=== PATIENT | female | born 1960 | race Two or more races ===

== ENCOUNTER → 2021-04-08 17:17 | Outpatient (CLI) | payer MEDICARE, MEDICAID, SELFPAY ==
[2021-04-08 17:57] LABS: Basophils # 0.1 K/mm3 (0-0.2); Basophils % 0.5 % (0.1-2.0); Eosinophils # 0.4 K/mm3 (0.0-0.4); Eosinophils % 4.6 % (0.1-12.0); Hematocrit 41.2 % (37.0-47.0); Hemoglobin 13.2 g/dL (12.2-16.2); Lymphocytes # 1.8 K/mm3 (0.7-4.5); Lymphocytes % 21.5 % (10-50); Mean Corpuscular HGB Conc 32.1 g/dL (31.8-35.4); Mean Corpuscular Hemoglobin 30.4 pg (27.0-31.2); Mean Corpuscular Volume 94.6 fl (81-99); Mean Platelet Volume 8.7 fl (7.4-10.4); Monocytes # 0.4 K/mm3 (0.1-1.0); Monocytes % 4.8 % (1.7-9.3); Neutrophils # 5.8 K/mm3 (1.8-7.8); Neutrophils % 68.5 % (37.0-80.0); Platelet Count 336 K/mm3 (142-424); Red Blood Count 4.35 M/mm3 (4.20-5.40); Red Cell Distribution Width 12.5 % (11.5-17.5); White Blood Count 8.5 K/mm3 (4.8-10.8)
[2021-04-08 18:42] LABS: Hemoglobin A1C 11.8 % (4.0-6.0)
[2021-04-08 19:01] LABS: Chloride 96 mmol/L (98-107); Potassium 4.6 mmoL/L (3.5-5.1); Sodium 138 mmol/L (136-145)
[2021-04-08 19:04] LABS: Alanine Aminotransferase 20 U/L (12-78); Albumin Level 4.3 g/dl (3.5-5.0); Albumin/Globulin Ratio 1.3 (1.1-1.8); Alkaline Phosphatase 199 U/L (38-126); Anion Gap 17.6 mEq/L (5-15); Aspartate Amino Transferase 28 U/L (14-36); Bilirubin,Total 0.3 mg/dl (0.2-1.3); Blood Urea Nitrogen 20 mg/dl (7-17); Carbon Dioxide 29 mmol/L (22.0-30.0); Cholesterol 184 mg/dl (140-200); Estimated Glomerular Filt Rate 73 ml/min (>60); GFR (African American) 88 ML/MIN (>60); Globulin 3.4 g/dL (1.3-3.2); Total Protein,Serum 7.7 g/dl (6.3-8.2); Triglycerides 123 mg/dl (30-150); VLDL Cholesterol 25 mg/dL (0-40)
[2021-04-08 19:05] LABS: Calcium 9.2 mg/dl (8.4-10.2); Chol/HDL Ratio 2.3 (1-3.5); Glucose 325 mg/dl (74-100); HDL Cholesterol 80 mg/dl (40-60)
[2021-04-08 19:16] LABS: Direct LDL Cholesterol 79.26 mg/dL (100-129)
== END ==
PROVIDERS: Visit Provider Family Medicine
DX: G47.33 Obstructive sleep apnea (adult) (pediatric) (principal); Z99.89 Dependence on other enabling machines and devices; Z76.89 Persons encountering health services in other specified circumstances; E11.9 Type 2 diabetes mellitus without complications; Z79.4 Long term (current) use of insulin
CPT/HCPCS: 80053; 80061; 83036; 85025

== ENCOUNTER → 2021-11-04 16:00 | Outpatient (CLI) | payer MEDICARE, MEDICAID, SELFPAY ==
[2021-11-04 18:24] LABS: Alanine Aminotransferase 24 U/L (12-78); Albumin Level 4.1 g/dl (3.5-5.0); Albumin/Globulin Ratio 1.5 (1.1-1.8); Alkaline Phosphatase 268 U/L (38-126); Anion Gap 13.5 mEq/L (5-15); Aspartate Amino Transferase 44 U/L (14-36); Bilirubin,Total 0.6 mg/dl (0.2-1.3); Blood Urea Nitrogen 20 mg/dl (7-17); Calcium 8.9 mg/dl (8.4-10.2); Carbon Dioxide 30 mmol/L (22.0-30.0); Chloride 96 mmol/L (98-107); Estimated Glomerular Filt Rate 85 ml/min (>60); GFR (African American) 102 ML/MIN (>60); Globulin 2.7 g/dL (1.3-3.2); Glucose 379 mg/dl (74-100); HDL Cholesterol 61 mg/dl (40-60); Potassium 5.5 mmoL/L (3.5-5.1); Sodium 134 mmol/L (136-145); Total Protein,Serum 6.8 g/dl (6.3-8.2)
[2021-11-04 18:36] LABS: Direct LDL Cholesterol 43.66 mg/dL (100-129)
[2021-11-04 18:38] LABS: Hemoglobin A1C 12.4 % (4.0-6.0)
[2021-11-04 18:55] LABS: Thyroid Stimulating Hormone 4.57 uIU/mL (0.465-4.68)
[2021-11-04 19:25] LABS: Chol/HDL Ratio 2.3 (1-3.5); Cholesterol 143 mg/dl (140-200); Triglycerides 221 mg/dl (30-150); VLDL Cholesterol 44 mg/dL (0-40)
== END ==
PROVIDERS: Visit Provider Family Medicine
DX: E11.9 Type 2 diabetes mellitus without complications (principal); E78.2 Mixed hyperlipidemia; Z79.4 Long term (current) use of insulin; Z79.899 Other long term (current) drug therapy
CPT/HCPCS: 80053; 80061; 83036; 84443

== ENCOUNTER → 2023-03-19 15:06 | Outpatient (CLI) | payer MEDICARE, MEDICAID, SELFPAY | PROVIDERS: PCP Family Medicine; Visit Provider Family Medicine | DX: N28.9 Disorder of kidney and ureter, unspecified (principal); B96.29 Other Escherichia coli [E. coli] as the cause of diseases classified elsewhere | CPT/HCPCS: 87086; 87088; 87186 ==

== ENCOUNTER → 2023-07-26 07:01 | Outpatient (CLI) | payer MEDICARE, MEDICAID, SELFPAY | PROVIDERS: PCP Nurse Practitioner; Visit Provider Nurse Practitioner | DX: R30.0 Dysuria (principal); B95.2 Enterococcus as the cause of diseases classified elsewhere | CPT/HCPCS: 87086 ==

== ENCOUNTER 2023-08-18 18:21 | Outpatient (CLI) | payer MEDICARE, MEDICAID, SELFPAY | END 2023-08-18 23:59 | LOC: LAB.DROPOF 18:22 | PROVIDERS: PCP Family Medicine; Visit Provider Family Medicine | DX: N39.0 Urinary tract infection, site not specified (principal) | CPT/HCPCS: 87086 ==

== ENCOUNTER 2023-11-18 18:00 | Outpatient (CLI) | payer MEDICARE, MEDICAID, SELFPAY ==
[2023-11-18 18:51] LABS: Basophils % 0.5 % (0.1-2.0); Eosinophils # 0.3 K/mm3 (0.0-0.4); Eosinophils % 5.3 % (0.1-12.0); Hematocrit 36.6 % (37.0-47.0); Hemoglobin 11.5 g/dL (12.2-16.2); Lymphocytes # 1.8 K/mm3 (0.7-4.5); Lymphocytes % 30.6 % (10-50); Mean Corpuscular HGB Conc 31.4 g/dL (31.8-35.4); Mean Corpuscular Hemoglobin 30.6 pg (27.0-31.2); Mean Corpuscular Volume 97.4 fl (81-99); Mean Platelet Volume 9.2 fl (7.4-10.4); Monocytes # 0.4 K/mm3 (0.1-1.0); Monocytes % 6.4 % (1.7-9.3); Neutrophils # 3.3 K/mm3 (1.8-7.8); Neutrophils % 57.2 % (37.0-80.0); Platelet Count 313 K/mm3 (142-424); Red Blood Count 3.76 M/mm3 (4.20-5.40); Red Cell Distribution Width 13.1 % (11.5-17.5); White Blood Count 5.8 K/mm3 (4.8-10.8)
[2023-11-18 20:02] LABS: Alanine Aminotransferase 28 U/L (12-78); Albumin Level 3.9 g/dl (3.5-5.0); Albumin/Globulin Ratio 1.6 (1.1-1.8); Alkaline Phosphatase 163 U/L (38-126); Anion Gap 8.1 mEq/L (5-15); Aspartate Amino Transferase 28 U/L (14-36); Bilirubin,Total 0.3 mg/dl (0.2-1.3); Blood Urea Nitrogen 21 mg/dl (7-17); Calcium 9.1 mg/dl (8.4-10.2); Carbon Dioxide 32 mmol/L (22.0-30.0); Chloride 101 mmol/L (98-107); Chol/HDL Ratio 2.8 (1-3.5); Cholesterol 192 mg/dl (140-200); Estimated Glomerular Filt Rate 72 ml/min (>60); GFR (African American) 87 ML/MIN (>60); Globulin 2.4 g/dL (1.3-3.2); Glucose 305 mg/dl (74-100); HDL Cholesterol 68 mg/dl (40-60); Potassium 5.1 mmoL/L (3.5-5.1); Sodium 136 mmol/L (136-145); Total Protein,Serum 6.3 g/dl (6.3-8.2); Triglycerides 188 mg/dl (30-150); VLDL Cholesterol 38 mg/dL (0-40)
[2023-11-18 20:09] LABS: Hemoglobin A1C 12.1 % (4.0-6.0)
[2023-11-18 20:12] LABS: Direct LDL Cholesterol 74.42 mg/dL (100-129)
[2023-11-18 20:32] LABS: Thyroid Stimulating Hormone 4.68 uIU/mL (0.465-4.68)
== END 2023-11-18 23:59 | disposition home or self-care (01) ==
LOC: LAB.DROPOF 11-19 10:27
PROVIDERS: PCP Family Medicine; Visit Provider Family Medicine
DX: I11.9 Hypertensive heart disease without heart failure (principal); E78.2 Mixed hyperlipidemia; E11.9 Type 2 diabetes mellitus without complications; Z79.899 Other long term (current) drug therapy
CPT/HCPCS: 80053; 80061; 83036; 84443; 85025

== ENCOUNTER 2024-06-21 14:50 | Outpatient (CLI) | payer MEDICARE, MEDICAID, SELFPAY ==
[2024-06-21 18:52] LABS: Basophils % 0.2 % (0.1-2.0); Eosinophils % 0.4 % (0.1-12.0); Hematocrit 36.6 % (37.0-47.0); Hemoglobin 11.8 g/dL (12.2-16.2); Lymphocytes # 1.9 K/mm3 (0.7-4.5); Mean Corpuscular HGB Conc 32.3 g/dL (31.8-35.4); Mean Corpuscular Hemoglobin 29.3 pg (27.0-31.2); Mean Corpuscular Volume 90.8 fl (81-99); Mean Platelet Volume 8.5 fl (7.4-10.4); Monocytes # 0.6 K/mm3 (0.1-1.0); Monocytes % 5.4 % (1.7-9.3); Neutrophils # 8.6 K/mm3 (1.8-7.8); Platelet Count 340 K/mm3 (142-424); Red Blood Count 4.03 M/mm3 (4.20-5.40); Red Cell Distribution Width 13.8 % (11.5-17.5); White Blood Count 11.1 K/mm3 (4.8-10.8)
[2024-06-21 19:30] LABS: Alanine Aminotransferase 25 U/L (12-78); Albumin/Globulin Ratio 1.7 (1.1-1.8); Alkaline Phosphatase 113 U/L (38-126); Anion Gap 11.8 mEq/L (5-15); Aspartate Amino Transferase 32 U/L (14-36); Bilirubin,Total 0.4 mg/dl (0.2-1.3); Blood Urea Nitrogen 18 mg/dl (7-17); Calcium 8.8 mg/dl (8.4-10.2); Carbon Dioxide 32 mmol/L (22.0-30.0); Chloride 99 mmol/L (98-107); Chol/HDL Ratio 1.7 (1-3.5); Cholesterol 131 mg/dl (140-200); Estimated Glomerular Filt Rate 84 ml/min (>60); GFR (African American) 102 ML/MIN (>60); Globulin 2.4 g/dL (1.3-3.2); Glucose 168 mg/dl (74-100); HDL Cholesterol 75 mg/dl (40-60); Potassium 4.8 mmoL/L (3.5-5.1); Sodium 138 mmol/L (136-145); Total Protein,Serum 6.4 g/dl (6.3-8.2); Triglycerides 95 mg/dl (30-150); VLDL Cholesterol 19 mg/dL (0-40)
[2024-06-21 19:56] LABS: Hemoglobin A1C 10.8 % (4.0-6.0)
== END 2024-06-21 23:59 | disposition home or self-care (01) ==
LOC: LAB.DROPOF 06-22 15:41
PROVIDERS: PCP Family Medicine; Visit Provider Family Medicine
DX: E11.9 Type 2 diabetes mellitus without complications (principal); E78.2 Mixed hyperlipidemia; I11.9 Hypertensive heart disease without heart failure; Z86.73 Personal history of transient ischemic attack (TIA), and cerebral infarction without residual deficits
CPT/HCPCS: 80053; 80061; 83036; 85025

== ENCOUNTER 2024-12-06 08:54 | Outpatient (CLI) | payer MEDICARE, MEDICAID, SELFPAY ==
[2024-12-06 19:02] LABS: Microalbumin/Creatinine Ratio 122.4
[2024-12-06 19:10] LABS: Creatinine,Urine Random 50 mg/dL (Not Estab.)
== END 2024-12-06 23:59 | disposition home or self-care (01) ==
LOC: LAB.DROPOF 12-08 08:55
PROVIDERS: PCP Family Medicine; Visit Provider Family Medicine
DX: E11.9 Type 2 diabetes mellitus without complications (principal); Z79.85 Long-term (current) use of injectable non-insulin antidiabetic drugs; Z79.4 Long term (current) use of insulin
CPT/HCPCS: 82043; 82570

== ENCOUNTER 2025-03-07 12:15 | Outpatient (CLI) | payer MEDICARE, MEDICAID, SELFPAY ==
[2025-03-07 15:11] LABS: Hematocrit 31.7 % (37.0-47.0); Hemoglobin 9.7 g/dL (12.2-16.2); Immature Granulocytes % 0.4 %; Mean Corpuscular HGB Conc 30.6 g/dL (31.8-35.4); Mean Corpuscular Hemoglobin 24.9 pg (27.0-31.2); Mean Corpuscular Volume 81.5 fl (81-99); Nucleated Red Blood Cells % 0 %; Platelet Count 368 K/mm3 (142-424); Red Blood Count 3.89 M/mm3 (4.20-5.40); Red Cell Distribution Width-SD 49.1 fL; White Blood Count 7.7 K/mm3 (4.8-10.8)
[2025-03-07 15:59] LABS: Alanine Aminotransferase 17 U/L (12-78); Albumin Level 4.1 g/dl (3.5-5.0); Albumin/Globulin Ratio 1.5 (1.1-1.8); Alkaline Phosphatase 143 U/L (38-126); Anion Gap 9.9 mEq/L (5-15); Aspartate Amino Transferase 25 U/L (14-36); Blood Urea Nitrogen 18 mg/dl (7-17); Calcium 9.2 mg/dl (8.4-10.2); Carbon Dioxide 31 mmol/L (22.0-30.0); Chloride 100 mmol/L (98-107); Cholesterol 139 mg/dl (140-200); Creatinine,Serum 0.70 mg/dl (0.52-1.04); Estimated Glomerular Filt Rate 84 ml/min (>60); GFR (African American) 101 ML/MIN (>60); Globulin 2.7 g/dL (1.3-3.2); Glucose 125 mg/dl (74-100); HDL Cholesterol 77 mg/dl (40-60); Potassium 4.9 mmoL/L (3.5-5.1); Sodium 136 mmol/L (136-145); Total Protein,Serum 6.8 g/dl (6.3-8.2); Triglycerides 60 mg/dl (30-150)
[2025-03-07 16:04] LABS: Bilirubin,Total < 0.1 mg/dl (0.2-1.3)
[2025-03-07 16:51] LABS: Hepatitis C Ab Qual. W/ RFX NEGATIVE (Negative)
[2025-03-08 05:15] LABS: Hepatitis B Surface Antigen Negative (Negative)
--- OUTSIDE RECORDS SUMMARY | 2025-03-08 11:49 | XMS_ITS | Clinical Summary ---
Author Organization [facility] Address [address] [place] [address] Care Team Providers Care Delivery Rep Name Role Phone Chau Davison MD Primary Care Provider Social History Tobacco Use Types Packs/Day Years Used Date Smoking Tobacco: Never Assessed Comments Unknown Sex and Gender Information Value Date Recorded Sex Assigned at Not on file Legal Sex Female 7:44 PM EDT Gender Identity Not on file Sexual Orientation Not on file Plan of Treatment Not on file Insurance [employer] MEDICARE [place] Care Teams Delivery Rep Relationship Specialty Start Date End Date Chau Davison MD [facility] [place] [address] PCP - General 08/09/23
--- OUTSIDE RECORDS SUMMARY | 2025-03-08 11:49 | XMS_ITS | Encounter Summary ---
Author Organization [facility] Address [address] [place] [address] Care Team Providers Care Chief Sales Officer Name Role Phone Chau Davison MD Primary Care Provider [phone] Encounter Details Date Type Department Care Team (Late st Contact Info) Description 08/31/2024 Lab Requisition [facility] [address] [place] [address] Jeremy Bergman MD [address] [place] [address] Other specified disorders of bladder Social History Tobacco Use Types Packs/Day Years Used Date Smoking Tobacco: Never Assessed Comments Unknown Sex and Gender Information Value Date Recorded Sex Assigned at Not on file Legal Sex Female 7:44 PM EDT Gender Identity Not on file Sexual Orientation Not on file documented as of this encounter Plan of Treatment Not on file documented as of this encounter Procedures Procedure Name Priority Date/Time Associated Diagnosis Comments SURGICAL PATHOLOGY CONSULT Routine 08/31/2024 10:39 AM EST Other specified disorders of bladder documented in this encounter Results * Surgical Pathology Consult (08/31/2024 10:39 AM EST) Case Report Sugical Pathology Consult Case: [id number] Authorizing Provider: Jeremy Bergman MD Collected: 08/31/2024 1039 Ordering Location: [facility] Received: 08/31/2024 1039 Pathologist: Ann-Marie Abdullahi MD Specimen: Bladder, [id number] 08/31/2024 2:[address] [facility] Final Diagnosis A. BLADDER, RIGHT LATERAL WALL, BIOPSY ([id number]; 08/29/24): - ULCERATED MUCOSA WITH GRANULATION TISSUE AND ACUTE INFLAMMATION SEE NOTE 08/31/2024 2:[address] [facility] at 1403 EST Comment Biopsy shows ulcerated mucosa with acute inflammation and granulation tissue. Submucosally prominent vessels are noted. Correlation with clinical and imaging findings is recommended. 08/31/2024 2:[address] [facility] Clinical Information N32.89 - Other specified disorders of bladder [ICD-10-CM] 08/31/2024 2:[address] [facility] Gross Description A. [id number] Received along with a corresponding pathology report from [facility] are 2 slide(s) and 1 Block labeled outside case: [id number] collected on 08/29/24. 08/31/2024 2:[address] [facility] Intradepartmental Consultation with Agreement Dr Tammie Gomez MD 08/31/2024 2:[address] [facility] Note: A resident was involved in the service. I attest I examined the relevant preparations for the specimens and confirmed the diagnosis or interpretation. 08/31/2024 2:[address] [facility] Tissue Urinary bladder structure / Unknown 08/31/2024 10:39 AM EST 08/31/2024 10:39 AM EST Jeremy Bergman MD LAB PATHOLOGY ORDERABLES Nina bojorquez Result Performing Organization Address City/State/[facility] Co de Phone Number [facility] [address] [place] [address] documented in this encounter Visit Diagnoses Diagnosis Other specified disorders of bladder documented in this encounter Care Teams Chief Sales Officer Relationship Specialty Start Date End Date Chau Davison MD [address] [place] [id number] PCP - General 08/09/23 documented as of this encounter
--- OUTSIDE RECORDS SUMMARY | 2025-03-08 11:49 | XMS_ITS | Clinical Summary ---
Author Organization [facility] Address [address] [place], [place] [address] Phone Care Team Providers Care Optical Engineering Technician Name Role Phone Unavailable Primary Care Provider Unavailabl e Allergies No known active allergies Medications alendronate (FOSAMAX) 70 mg Oral Tablet Take 70 mg by mouth daily. 4 Active atorvastatin (LIPITOR) 20 mg Oral Tablet Take 20 mg by mouth daily. Active cyclobenzaprine (FLEXERIL) 10 mg Oral Tablet Take 10 mg by mouth 3 times daily as needed for Muscle spasms (typically takes HS). 4 Active desvenlafaxine succinate (PRISTIQ) 50 mg Oral Tablet Sustained Release 24 hr Take 50 mg by mouth daily. 4 Active fUROsemide (LASIX) 20 mg Oral Tablet Take 20 mg by mouth daily. Active Acidophilus-Pec tin, [place] 25 million cell -100 mg Oral Tablet Take 100 mg by mouth daily. Active losartan (COZAAR) 50 mg Oral Tablet Take 50 mg by mouth daily. Active insulin aspart U-100 (NOVOLOG) 100 unit/mL SubQ Solution Subcutaneous (Inject under the skin) 1-15 Units 3 times daily (before meals). Active insulin detemir U-100 (LEVEMIR) 100 unit/mL SubQ Solution Subcutaneous (Inject under the skin) 35 Units nightly. Active diphenhydrAMINE -acetaminophen (TYLENOL PM) 25-500 mg Oral Tablet Take 2 Tablets by mouth nightly as needed for Other. Active aspirin 81 mg Oral Tablet, Delayed Release (E.C.) Take 1 Tablet by mouth daily (with breakfast). 30 Tablet 10 4 Active Active Problems Problem Noted Date Diagnosed Date Moderate protein-calorie malnutrition 02/20/2024 Acute CVA (cerebrovascular accident) 02/18/2024 Atherosclerosis of [place] co ronary artery of [place] heart without angina pectoris 02/18/2024 Type 1 diabetes mellitus with circulatory compli cation 06/05/2016 Mixed hyperlipidemia 06/05/2016 Essential hypertension 06/05/2016 Surgical History Surgery Date Site/Laterality Comments CHOLECYSTECTOMY TUBAL LIGATION EYE SURGERY Medical History Medical History Date Comments Diabetes mellitus (HCC) Heart abnormality Hypertension Hyperlipidemia Arthritis Social History Tobacco Use Types Packs/Day Years Used Date Smoking Tobacco: Never Smokeless Tobacco: Never Tobacco Cessation:Counseling Given: Not Answered Alcohol Use Standard Drinks/Week Comments Not Currently 0 (1 standard drink = 0.6 oz pur e alcohol) [facility] Utilities Answer Date Recorded In the past 12 months has th e electric, gas, oil, or water company threatened to shut off services in your home? No 02/20/2024 Overall Financial Resource Strain (CARDIA) Answe r Date Recorded How hard is it for you to pa y for the very basics like food, housing, medical care, and heating? Not hard at all 02/20/2024 PHQ-2 Answer Date Recorded PHQ-2 Total Score 0 02/20/2024 [facility] - Occupational Stress Questionnaire Answer Date Recorded Do you feel stress - tense, restless, nervous, or anxious, or unable to sleep at night because your mind is troubled all the time - these days? Not at all 02/20/2024 Exercise Vital Sign Answer Date Recorde d On average, how many days pe r week do you engage in moderate to strenuous exercise (like a brisk walk)? 0 days 02/20/2024 On average, how many minutes do you engage in exercise at this level? 0 min 02/20/2024 Hunger Vital Sign Answer Date Recorded Within the past 12 months, y ou worried that your food would run out before you got the money to buy more. Never true 02/20/20 24 Within the past 12 months, t he food you bought just didn't last and you didn't have money to get more. Never true 02/20/2024 [facility] IP Transportation Answer D ate Recorded In the past 12 months, has l ack of reliable transportation kept you from medical appointments, meetings, work or from getting things needed for daily living? No 02/20/2024 Comments No Sex and Gender Information Value Date Recorded Sex Assigned at Not on file Legal Sex Female 10:08 AM EDT Gender Identity Not on file Sexual Orientation Not on file Obstetrics History Last Filed Vital Signs Vital Sign Reading Time Taken Comments Blood Pressure 113/58 02/21/2024 2:45 PM EDT Pulse 99 02/21/2024 2:45 PM EDT Temperature 36.3 C (97.4 F) 02/21/2024 2:45 PM EDT Respiratory Rate 16 02/21/2024 2:45 PM EDT Oxygen Saturation 99% 02/21/2024 2:45 PM EDT Inhaled Oxygen Concentration - - Weight 59.9 kg (132 lb) 02/18/2024 10:14 AM EDT Height 165.1 cm (5' 5 ) 02/18/2024 10:14 AM EDT Body Mass Index 21.97 02/18/2024 10:14 AM EDT Plan of Treatment Health Maintenance Due Date Last Done Comments Wellness Exam Medicare 1961 Kidney Health: uACR 1968 Diabetic Eye Exam 1976 Hepatitis C Screening 1976 Breast Cancer Screening 1998 Cologuard 2003 Colon Cancer Screening 2003 Colonoscopy 2003 FIT 2003 Sigmoidoscopy 2003 Virtual Colonography 2003 Zoster (1 of 2) 2008 RSV or 60+ (1 - Risk 60-74 years 1-dose series) 2018 Bone Density Screening 2023 DTaP/TDaP/Td (2 - Td or Tdap) 10/25/2023 10/24/2013 COVID-19 Vaccine ( season) 2024 Hemoglobin A1c 08/21/2024 02/19/2024 Kidney Health: eGFR 02/17/2025 02/18/2024 Lipids 02/18/2025 02/19/2024 Influenza Vaccine (#1) 2025 , 09/15/2022, 06/01/2017, Additional history exists Hepatitis B Vaccine Completed 09/27/1997, 04/13/1997, 03/13/1997 Pneumococcal Vaccine 50+ Completed 05/17/2023, 05/10 Meningococcal B Vaccine Aged Out No l onger eligible based on patient's age to complete this topic Procedures Procedure Name Priority Date/Time Associated Diagnosis Comments LIPID SCREEN Early AM 02/19/2024 7:46 AM EDT HEMOGLOBIN A1C Early AM 02/19/2024 7:46 AM EDT COMPREHENSIVE METABOLIC PANEL STAT 02/18/2024 11:31 AM EDT from Last 3 Months or Most Recently Relevant to Health Maintenance Results * (ABNORMAL) HEMOGLOBIN A1C (02/19/2024 7:46 AM EDT) Hgb A1C 11.5(H) 4.2 - 5.6 % 02/19/2024 8:29 AM EDT [facility] Est. Avg Glucose 283 mg/dL 02/19/2024 8:29 AM EDT [facility] Blood VENOUS BLOOD / Unknown Venipuncture / Unknown 02/19/2024 7:46 AM EDT 02/19/2024 8:06 AM EDT Narrative [facility] - 02/19/2024 8:29 AM EDT REFERENCE RANGE: Normal: 4.0-5.6% Pre-diabetes: 5.7-6.4% Provisional diagnosis of diabetes: >6.4% Hgb F>10% and anything which shortens red cell survival, such as hemolytic anemia, or unstable hemoglobin variants such as HbSS, HbSC, or HbCC, will lower the HbA1c value associated with a given level of glycemic control. us Jeremy Hernandes MD CHEMISTRY ORDERABLES Final Re sult [facility] [address] [facility] , [place] [address] * LIPID SCREEN (02/19/2024 7:46 AM EDT) Cholesterol 118 <200 mg/dL 02/19/2024 8:39 AM EDT [facility] Comment: < 200 Desirable 200 - 239 Borderline High >= 240 High Triglyceride 101 <150 mg/dL 02/19/2024 8:39 AM EDT [facility] Comment: < 150 Normal 150 - 199 Borderline High 200 - 499 High >= 500 Very High HDL 48 >=40 mg/dL 02/19/2024 8:39 AM EDT [facility] Comment: > 60 Optimal 40 - 60 Acceptable < 40 Low LDL Calculated 51 <100 mg/dL 02/19/2024 8:39 AM EDT [facility] Comment: < 100 Optimal 100 - 129 Near or above optimal 130 - 159 Borderline High 160 - 189 High >= 190 Very High Non-HDL-C Calculated 70 <=129 mg/dL 02/19/2024 8:39 AM EDT [facility] [employer] Comment: <130 Desirable 130-159 Above Desirable 160-189 Borderline High 190-219 High >= 220 Very High Fasting Specimen? No None 024 8:39 AM EDT [facility] Blood VENOUS BLOOD / Unknown Venipuncture / Unknown 02/19/2024 7:46 AM EDT 02/19/2024 8:06 AM EDT us Jeremy Hernandes MD CHEMISTRY ORDERABLES Final Re sult [facility] [employer] [facility] [address] [facility], [place] [address] [facility] [address] [place] [address] * (ABNORMAL) COMPREHENSIVE METABOLIC PANEL (02/18/2024 11:31 AM EDT) Sodium 137 136 - 145 mmol/L 02/18/2024 11:54 AM EDT [facility] Potassium 5.0 3.5 - 5.0 mmol/L 02/18/2024 11:54 AM EDT [facility] Chloride 99 98 - 107 mmol/L 02/18/2024 11:54 AM EDT [facility] Total CO2 28 22 - 29 mmol/L 02/18/2024 11:54 AM EDT [facility] Anion Gap 10 7 - 16 mmol/L 02/18/2024 11:54 AM EDT [facility] Calcium 9.4 8.8 - 10.4 mg/dL 02/18/2024 11:54 AM EDT [facility] Glucose Lvl 108(H) 70 - 99 mg/dL 02/18/2024 11:54 AM EDT [facility] BUN 25(H) 8 - 23 mg/dL 02/18/2024 11:54 AM EDT [facility] Creatinine 0.78 0.51 - 1.30 mg/dL 02/18/2024 11:54 AM EDT [facility] Albumin 4.2 3.2 - 4.6 gm/dL 02/18/2024 11:54 AM EDT [facility] Total Protein 7.2 6.4 - 8.3 gm/dL 02/18/2024 11:54 AM EDT [facility] Bili Total 0.2 0.2 - 1.3 mg/dL 02/18/2024 11:54 AM EDT [facility] ALT 15 <=41 U/L 02/18/2024 11:54 AM EDT [facility] AST 13 <=40 U/L 02/18/2024 11:54 AM EDT [facility] Alk Phos 137(H) 36 - 123 U/L 02/18/2024 11:54 AM EDT [facility] eGFR (CKD-EPIcr 2020) 84 >=60 mL/min/1.7 3 m2 02/18/2024 11:54 AM EDT [facility] Comment:Estimated GFR was ca lculated using the CKD-EPIcr (2020) equation refit without race. The equation is recommended by the National Kidney [employer] - [place] [employer] Neph[employer] Task Force. Blood VENOUS BLOOD / Unknown Venipuncture / Unknown 02/18/2024 11:31 AM EDT 02/18/2024 11:33 AM EDT us Rosalba Lorenzo MD CHEMISTRY ORDERABLES Final R esult [facility] [address] [place] [address] from Last 3 Months or Most Recently Relevant to Health Maintenance Insurance [employer] MEDICARE [place] [employer] Advance Directives For more information, please contact: [phone] * Full Code (Latest Code Status on File) Date Activated Date Inactivated Comments 02/18/2024 5:56 PM 02/21/2024 10:05 PM
== END 2025-03-07 23:59 | disposition home or self-care (01) ==
LOC: LAB.DROPOF 03-08 11:47
PROVIDERS: PCP Family Medicine; Visit Provider Family Medicine
DX: E78.2 Mixed hyperlipidemia (principal); Z11.59 Encounter for screening for other viral diseases; E11.9 Type 2 diabetes mellitus without complications
CPT/HCPCS: 80053; 80061; 85025; 86803; 87340; 87389